=== PATIENT | female | born 1995 | race Caucasian/White ===

== ENCOUNTER 2017-11-26 18:20 | Emergency (ER) | payer MEDICAID ==
[~2017-11-26] VITALS: Ht 137.2 cm; Wt 50.0 kg
[2017-11-26 18:51] VITALS: BP 116/68
[2017-11-26 19:30] LABS: URINE HCG NEGATIVE (NEG)
[2017-11-26 19:35] LABS: CLARITY,URINE CLOUDY (Clear); COLOR,URINE YELLOW (Yellow); GLUCOSE, URINE NEGATIVE (Neg); KETONES,URINE NEGATIVE (Neg); LEUKOCYTE ESTERASE ,URINE SMALL (Neg); NITRITES, URINE POSITIVE (Neg); OCCULT BLOOD,URINE LARGE (Neg); PH,URINE 5.5 (4.8-8.0); PROTEIN,URINE 30 mg/dl (Neg); UROBILINOGEN,URINE 0.2 E.U/dL (0.2-1.0)
[2017-11-26 19:46] LABS: UA COLLECTION TYPE CLN CATCH MIDSTREAM
[2017-11-26 19:47] LABS: BACTERIA,URINE 4+ /HPF (Neg); SQUAMOUS EPITHELIAL CELL,UR MODERATE /LPF (FEW); WBC,URINE 20-30 /HPF (0-4)
[2017-11-26] MEDS ORDERED: PHEN-716 PO (20:22)
[2017-11-26] MEDS ORDERED: CIPR-259 PO (20:22)
== END 2017-11-26 20:59 | disposition home or self-care (01) ==
LOC: ER 18:21
DX: N39.0 Urinary tract infection, site not specified (principal)
CPT/HCPCS: 81001; 81025; 87077; 87088; 87186; 99284

== ENCOUNTER 2020-05-26 20:52 | Emergency (ER) | payer MEDICAID, OTHER ==
[~2020-05-26] VITALS: Ht 142.2 cm; Wt 50.0 kg
[~2020-05-26 20:52] MED LIST: PHEN-716 PO
[2020-05-26 21:00] VITALS: BP 126/80
== END 2020-05-27 01:15 | disposition left against medical advice (07) ==
LOC: ER 20:53
DX: R51.9 Headache, unspecified (principal); Z53.21 Procedure and treatment not carried out due to patient leaving prior to being seen by health care provider